=== PATIENT | male | born 1960 | race Caucasian/White ===

== ENCOUNTER 2019-11-10 14:39 | Inpatient (IN) | payer MEDICAID ==
[~2019-11-10] VITALS: Ht 188 cm; Wt 85.9 kg
[2019-11-10] MEDS: IBUPROFEN 800 MG TABLET PO SCH (01:00)
--- NOTE | 2019-11-10 15:07 | NUR ---
TIN DIPPER: PT TO ROOM FROM LOBBY, GAIT SLOW AND STEADY
[2019-11-10 15:25] LABS: MEAN CORPUSCULAR HEMOGLOBIN 17.2 pg (27.5-34.5); MEAN CORPUSCULAR HGB CONC 30.2 g/dL (33.2-36.2); MEAN CORPUSCULAR VOLUME 56.8 fL (81-97); MEAN PLATELET VOLUME 8.9 fL (7.4-10.4); PLATELET COUNT 683 x10^3/uL (130-400); RED BLOOD COUNT 5.54 x10^6/uL (4.38-5.82); RED CELL DISTRIBUTION WIDTH 25.3 % (9.4-14.8)
[2019-11-10 15:33] LABS: ALBUMIN 2.9 g/dL (3.4-5.0); ANION GAP 10 mmol/L (5-15); CALCIUM 8.9 mg/dL (8.5-10.1); CHLORIDE 97 mmol/L (98-107)
[2019-11-10 15:37] LABS: ALANINE AMINOTRANSFERASE 15 U/L (12-78); ALKALINE PHOSPHATASE 111 U/L (45-117); BILIRUBIN,TOTAL 0.6 mg/dL (0.2-1.0); CREATININE 1.59 mg/dL (0.7-1.3); TOTAL PROTEIN 7.2 g/dL (6.4-8.2)
[2019-11-10 15:44] LABS: MD YES
[2019-11-10] MEDS ORDERED: ONDANSETRON 2MG/ML, 2ML ONE ×2 (15:45→19:19)
[2019-11-10] MEDS ORDERED: MORPHINE SULFATE 4 MG/ML, 1ML ONE (15:45)
[2019-11-10 15:47] LABS: BAND#(MANUAL) 0.87 x10^3/uL; BANDS%(MANUAL) 7 % (0-7); EOS#(MANUAL) 0.12 x10^3/uL (0.0-0.4); EOS% (MANUAL) 1 % (1-7); LYMPH#(MANUAL) 0.37 x10^3/uL (1-3.4); LYMPHS% (MANUAL) 3 % (22-44); MONOS#(MANUAL) 0.62 x10^3/uL (0.3-2.7); MONOS% (MANUAL) 5 % (2-9); SEG#(MANUAL) 10.42 x10^3/uL (1.8-6.8); SEGS% (MANUAL) 84 % (42-75)
[2019-11-10 15:48] LABS: ANISOCYTOSIS 1+; HYPOCHROMIA 1+; MICROCYTOSIS 2+
[2019-11-10 15:49] LABS: ACANTHOCYTES 1+; OVALOCYTES 2+
[2019-11-10 15:50] LABS: <PLATELET ESTIMATE> INCREASED; LARGE PLATELETS 1+; SCHISTOCYTES 1+
[2019-11-10] MEDS ORDERED: MORPHINE SULFATE 4 MG/ML, 1ML IVPush PRN (16:00)
[2019-11-10] MEDS ORDERED: ONDANSETRON 2MG/ML, 2ML IVPush ONE (16:00)
--- NOTE | 2019-11-10 16:00 | NUR ---
PT AMB TO BATHROOM UPRIGHT STEADY GAIT. PT RPTS HE WAS UNABLE TO PROVIDE URINE SAMPLE AT THIS TIME. RTD TO ROOM W/O INCIDENT. POC DISCUSSED WITH PT AND QUESTIONS ANSWERED.
--- NOTE | 2019-11-10 16:15 | NUR ---
PIV EST AND PT MED NOTED. PT TO CT WITH TECH TRANSPORT
--- NOTE | 2019-11-10 16:25 | NUR ---
PT RTD FROM CT. VSS, CALL LIGHT W/I REACH
[2019-11-10] MEDS ORDERED: OMNIPAQUE 350 MG/ML, 100ML BOTTLE ONE (16:27)
[2019-11-10] MEDS ORDERED: LEVO25TA2 PO (16:28)
[2019-11-10] MEDS ORDERED: ALBU0.63 NEB (16:28)
[2019-11-10] MEDS ORDERED: ATOR40TA78 PO (16:28)
[2019-11-10 16:37] LABS: POLYCHROMASIA 1+
--- NOTE | 2019-11-10 17:04 | NUR ---
dr young spoke with dr eagle
[2019-11-10] MEDS ORDERED: SODIUM CHLORIDE 0.9% 1,000 ML IV ONE (17:06)
[2019-11-10] MEDS ORDERED: CEFTRIAXONE PMX 1GM/50ML 50 ML IVPB ONE (17:30)
[2019-11-10] MEDS ORDERED: FENTANYL PF 250 MCG/5ML ONE (17:37)
[2019-11-10] MEDS ORDERED: CEFTRIAXONE PMX 1GM/50ML 50 ML ONE (17:40)
[2019-11-10 17:48] LABS: INTERNATIONAL NORMALIZED RATIO 1.02 (0.93-1.1); PROTHROMBIN TIME 10.8 Seconds (9.6-11.5)
--- NOTE | 2019-11-10 17:51 | NUR ---
NGT INSERTED RIGHT NARE, PLACEMENT CONFIRMED BY AUSCULTATION AND PLACED TO LIS. NO DRAINAGE NOTED. PT TOLLERATED WELL AND TUBE [id number] WITH SECUREMENT DEVISE.
--- NOTE | 2019-11-10 17:58 | NUR ---
SBAR RPT TO BEADING SAWYER AND TO RAFI SCHROEDER ON SURGICAL.
[2019-11-10] MEDS ORDERED: DEXAMETHASONE 4 MG/ML, 1ML ONE (18:25)
[2019-11-10] MEDS ORDERED: CEFOTETAN PMX 2GM/50ML 50 ML ONE (18:31)
[2019-11-10] MEDS ORDERED: ROCURONIUM 10MG/ML,5ML ONE (18:48)
[2019-11-10] MEDS ORDERED: PROPOFOL 10 MG/ML, 20ML ONE (18:48)
[2019-11-10] MEDS ORDERED: SUCCINYLCHOLINE 20 MG/ML, 10ML ONE (18:48)
[2019-11-10] MEDS ORDERED: KETOROLAC 30 MG/1 ML ONE (18:48)
[2019-11-10] MEDS ORDERED: MEPERIDINE/PF 25MG/ML,1ML IVPush PRN (19:00)
[2019-11-10] MEDS ORDERED: MIDAZOLAM 1 MG/ML, 2ML IV PRN (19:00)
[2019-11-10] MEDS ORDERED: FENTANYL PF 100 MCG/2ML IV PRN (19:00)
[2019-11-10] MEDS ORDERED: hydrALAzine 20 MG/ML, 1ML IV PRN (19:00)
[2019-11-10] MEDS ORDERED: PROMETHAZINE 25 MG/ML, 1ML IV PRN (19:00)
[2019-11-10] MEDS ORDERED: LABETALOL 5MG/ML, 20ML IV PRN (19:00)
[2019-11-10] MEDS ORDERED: ONDANSETRON 2MG/ML, 2ML IV PRN (19:00)
[2019-11-10] MEDS ORDERED: NEOSTIGMINE 1 MG/ML, 10ML ONE (19:31)
[2019-11-10] MEDS ORDERED: GLYCOPYRROLATE 0.2MG/1ML, 5ML ONE (19:31)
[2019-11-10] MEDS ORDERED: DIPHENHYDRAMINE 50 MG/ML, 1ML IVPush PRN (20:00)
[2019-11-10] MEDS ORDERED: LORazepam 2 MG/ML, 1ML IVPush PRN (20:00)
[2019-11-10] MEDS ORDERED: HYDROmorphone 1 MG/ML, 1ML INJ IVPush PRN (20:00)
[2019-11-10] MEDS ORDERED: ONDANSETRON 2MG/ML, 2ML IVPush PRN (20:00)
[2019-11-10] MEDS ORDERED: CALCIUM CARBONATE 500 MG TAB.CHEW PO PRN (20:00)
[2019-11-10] MEDS ORDERED: SCOPOLAMINE PATCH, 1.5MG PATCH.TD72 TD PRN (20:00)
[2019-11-10] MEDS ORDERED: HYDROmorphone 1 MG/ML, 1ML INJ ONE ×2 (20:20→20:52)
[2019-11-10] MEDS: HYDROmorphone 2 MG/ML, 1ML IVPush PRN ×4 (20:22→21:10)
[2019-11-10] MEDS ORDERED: MEPERIDINE/PF 25MG/ML,1ML ONE (20:26)
[2019-11-10 21:50] VITALS: BP 128/84
[2019-11-10] MEDS: ACETAMINOPHEN 325 MG TABLET PO SCH (22:45)
[2019-11-11] VITALS: BP 112/77
[2019-11-11] MEDS ORDERED: TEMPLATE NON-FORMULARY MED. (Albuterol Sulfate (Albuterol Sulfate**) 1 VIAL) NEB PRN
[2019-11-11] MEDS ORDERED: ALBUTEROL SULFATE 2.5 MG/3 ML NPPB PRN (00:30)
[2019-11-11 00:51] LABS: MICROSCOPIC INDICATED
[2019-11-11] MEDS: IBUPROFEN 800 MG TABLET PO SCH ×4 (01:17→20:49)
[2019-11-11 01:20] LABS: CULTURE INDICATED? NO
[2019-11-11 03:21] LABS: ALBUMIN 2.1 g/dL (3.4-5.0); ANION GAP 4 mmol/L (5-15); CALCIUM 7.9 mg/dL (8.5-10.1); CHLORIDE 99 mmol/L (98-107); CREATININE 1.13 mg/dL (0.7-1.3)
[2019-11-11 03:37] LABS: MEAN CORPUSCULAR HEMOGLOBIN 17.5 pg (27.5-34.5); MEAN CORPUSCULAR HGB CONC 30.8 g/dL (33.2-36.2); MEAN CORPUSCULAR VOLUME 56.7 fL (81-97); MEAN PLATELET VOLUME 8.8 fL (7.4-10.4); PLATELET COUNT 484 x10^3/uL (130-400); RED BLOOD COUNT 4.52 x10^6/uL (4.38-5.82); RED CELL DISTRIBUTION WIDTH 24.2 % (9.4-14.8)
[2019-11-11 03:39] LABS: MD YES
[2019-11-11 03:40] LABS: BAND#(MANUAL) 3.13 x10^3/uL; BANDS%(MANUAL) 27 % (0-7); METAMYELOCYTES# (MANUAL) 0.93 x10^3/uL (0-0); METAMYELOCYTES% (MANUAL) 8 % (0-1); MONOS#(MANUAL) 0.23 x10^3/uL (0.3-2.7); MONOS% (MANUAL) 2 % (2-9); SEG#(MANUAL) 7.31 x10^3/uL (1.8-6.8); SEGS% (MANUAL) 63 % (42-75)
[2019-11-11 03:42] LABS: <PLATELET ESTIMATE> INCREASED; LARGE PLATELETS 1+
[2019-11-11 03:43] LABS: ACANTHOCYTES 1+; ANISOCYTOSIS 1+; HYPOCHROMIA 1+; MICROCYTOSIS 2+; OVALOCYTES 2+; POLYCHROMASIA 1+; SCHISTOCYTES 1+
[2019-11-11 04:07] VITALS: BP 113/76
[2019-11-11] MEDS: ACETAMINOPHEN 325 MG TABLET PO SCH ×4 (05:55→23:02)
[2019-11-11] MEDS: LEVOTHYROXINE 25 MCG TABLET PO SCH (05:55)
[2019-11-11] MEDS: CEFTRIAXONE 2 GM in SODIUM CHLORIDE 0.9% 50 ML IVPB SCH (05:57)
[2019-11-11 06:01] VITALS: BP 116/72
[2019-11-11 08:19] VITALS: BP 95/63
[2019-11-11] MEDS: ENOXAPARIN 30 MG/0.3 ML SQ SCH ×2 (08:41→20:49)
[2019-11-11 14:20] VITALS: BP 113/75
[2019-11-11] MEDS: OXYcodone IR 5MG TABLET PO PRN (15:19)
[2019-11-11 19:06] VITALS: BP 105/66
[2019-11-11] MEDS: ATORVASTATIN 40 MG TABLET PO SCH (20:49)
[2019-11-12] MEDS: OXYcodone IR 5MG TABLET PO PRN (00:47)
[2019-11-12 01:22] VITALS: BP 122/77
[2019-11-12 03:31] LABS: ANION GAP 6 mmol/L (5-15); CALCIUM 7.9 mg/dL (8.5-10.1); CHLORIDE 96 mmol/L (98-107); CREATININE 0.92 mg/dL (0.7-1.3)
[2019-11-12 03:51] LABS: MEAN CORPUSCULAR HEMOGLOBIN 17.5 pg (27.5-34.5); MEAN CORPUSCULAR VOLUME 56.4 fL (81-97); MEAN PLATELET VOLUME 8.7 fL (7.4-10.4); PLATELET COUNT 485 x10^3/uL (130-400); RED BLOOD COUNT 4.28 x10^6/uL (4.38-5.82); RED CELL DISTRIBUTION WIDTH 24.6 % (9.4-14.8)
[2019-11-12 04:17] LABS: MD YES
[2019-11-12 04:23] LABS: ANISOCYTOSIS 2+; BAND#(MANUAL) 0.88 x10^3/uL; BANDS%(MANUAL) 7 % (0-7); LYMPH#(MANUAL) 0.75 x10^3/uL (1-3.4); LYMPHS% (MANUAL) 6 % (22-44); METAMYELOCYTES# (MANUAL) 0.38 x10^3/uL (0-0); METAMYELOCYTES% (MANUAL) 3 % (0-1); MONOS#(MANUAL) 0.25 x10^3/uL (0.3-2.7); MONOS% (MANUAL) 2 % (2-9); SEG#(MANUAL) 10.25 x10^3/uL (1.8-6.8); SEGS% (MANUAL) 82 % (42-75)
[2019-11-12 04:24] LABS: ACANTHOCYTES 1+; HYPOCHROMIA 1+; MICROCYTOSIS 2+; OVALOCYTES 2+; POLYCHROMASIA 1+; SCHISTOCYTES 1+
[2019-11-12 04:25] LABS: ECHINOCYTES 1+
[2019-11-12 04:26] LABS: <PLATELET ESTIMATE> INCREASED; LARGE PLATELETS 1+; TOXIC GRAN 1+
[2019-11-12] MEDS: ACETAMINOPHEN 325 MG TABLET PO SCH ×4 (04:58→22:36)
[2019-11-12] MEDS: LEVOTHYROXINE 25 MCG TABLET PO SCH (04:58)
[2019-11-12] MEDS: CEFTRIAXONE 2 GM in SODIUM CHLORIDE 0.9% 50 ML IVPB SCH (05:43)
[2019-11-12 06:40] VITALS: BP 114/76
[2019-11-12] MEDS: ENOXAPARIN 30 MG/0.3 ML SQ SCH ×2 (08:54→21:26)
[2019-11-12] MEDS: IBUPROFEN 800 MG TABLET PO SCH ×3 (08:54→21:24)
[2019-11-12 12:14] VITALS: BP 113/73
[2019-11-12 18:55] VITALS: BP 102/65
[2019-11-12] MEDS: ATORVASTATIN 40 MG TABLET PO SCH (21:24)
[2019-11-13] VITALS (7 sets, daily range): BP systolic 97–124; BP diastolic 63–77
[2019-11-13] MEDS: ACETAMINOPHEN 325 MG TABLET PO SCH ×4 (04:34→22:25)
[2019-11-13 04:48] LABS: ALBUMIN 1.8 g/dL (3.4-5.0); ANION GAP 6 mmol/L (5-15); CALCIUM 7.7 mg/dL (8.5-10.1); CHLORIDE 105 mmol/L (98-107); CREATININE 0.96 mg/dL (0.7-1.3)
[2019-11-13 04:50] LABS: MEAN CORPUSCULAR HEMOGLOBIN 17.3 pg (27.5-34.5); MEAN CORPUSCULAR HGB CONC 30.5 g/dL (33.2-36.2); MEAN CORPUSCULAR VOLUME 56.8 fL (81-97); MEAN PLATELET VOLUME 9.1 fL (7.4-10.4); PLATELET COUNT 463 x10^3/uL (130-400); RED BLOOD COUNT 3.73 x10^6/uL (4.38-5.82); RED CELL DISTRIBUTION WIDTH 24.5 % (9.4-14.8)
[2019-11-13 05:03] LABS: MD YES
[2019-11-13 05:06] LABS: ACANTHOCYTES 1+; ANISOCYTOSIS 2+; BAND#(MANUAL) 0.98 x10^3/uL; BANDS%(MANUAL) 9 % (0-7); EOS#(MANUAL) 0.33 x10^3/uL (0.0-0.4); EOS% (MANUAL) 3 % (1-7); HYPOCHROMIA 1+; LYMPH#(MANUAL) 2.07 x10^3/uL (1-3.4); LYMPHS% (MANUAL) 19 % (22-44); METAMYELOCYTES# (MANUAL) 0.11 x10^3/uL (0-0); METAMYELOCYTES% (MANUAL) 1 % (0-1); MICROCYTOSIS 2+; MONOS#(MANUAL) 0.44 x10^3/uL (0.3-2.7); MONOS% (MANUAL) 4 % (2-9); OVALOCYTES 2+; POLYCHROMASIA 1+; SCHISTOCYTES 1+; SEG#(MANUAL) 6.98 x10^3/uL (1.8-6.8); SEGS% (MANUAL) 64 % (42-75)
[2019-11-13 05:07] LABS: <PLATELET ESTIMATE> INCREASED; ECHINOCYTES 2+; LARGE PLATELETS 1+; TOXIC GRAN 1+
[2019-11-13] MEDS: CEFTRIAXONE PMX 2GM/50ML 50 ML IVPB SCH (05:38)
[2019-11-13] MEDS: LEVOTHYROXINE 25 MCG TABLET PO SCH (05:39)
[2019-11-13] MEDS: IBUPROFEN 800 MG TABLET PO SCH ×3 (09:51→22:25)
[2019-11-13] MEDS: ATORVASTATIN 40 MG TABLET PO SCH (22:25)
[2019-11-14 03:09] VITALS: BP 122/68
[2019-11-14 04:36] LABS: ANION GAP 4 mmol/L (5-15); CALCIUM 7.7 mg/dL (8.5-10.1); CHLORIDE 107 mmol/L (98-107); CREATININE 0.85 mg/dL (0.7-1.3)
[2019-11-14 04:46] LABS: MEAN CORPUSCULAR HEMOGLOBIN 18.9 pg (27.5-34.5); MEAN CORPUSCULAR HGB CONC 31.3 g/dL (33.2-36.2); MEAN CORPUSCULAR VOLUME 60.4 fL (81-97); MEAN PLATELET VOLUME 8.8 fL (7.4-10.4); PLATELET COUNT 480 x10^3/uL (130-400); RED BLOOD COUNT 3.97 x10^6/uL (4.38-5.82); RED CELL DISTRIBUTION WIDTH 32.2 % (9.4-14.8)
[2019-11-14 05:31] LABS: MD YES
[2019-11-14 05:40] LABS: BAND#(MANUAL) 0.71 x10^3/uL; BANDS%(MANUAL) 7 % (0-7); BASOS% (MANUAL) 1 % (0-1); LYMPH#(MANUAL) 1.92 x10^3/uL (1-3.4); LYMPHS% (MANUAL) 19 % (22-44); METAMYELOCYTES% (MANUAL) 1 % (0-1); MONOS#(MANUAL) 0.61 x10^3/uL (0.3-2.7); MONOS% (MANUAL) 6 % (2-9); SEG#(MANUAL) 6.67 x10^3/uL (1.8-6.8); SEGS% (MANUAL) 66 % (42-75)
[2019-11-14 05:41] LABS: <PLATELET ESTIMATE> INCREASED; ACANTHOCYTES 1+; ANISOCYTOSIS 2+; ECHINOCYTES 1+; HYPOCHROMIA 1+; LARGE PLATELETS 1+; MICROCYTOSIS 2+; OVALOCYTES 2+; POLYCHROMASIA 1+; SCHISTOCYTES 1+; TOXIC GRAN 1+
[2019-11-14] MEDS: CEFTRIAXONE PMX 2GM/50ML 50 ML IVPB SCH (05:47)
[2019-11-14] MEDS: ACETAMINOPHEN 325 MG TABLET PO SCH ×4 (05:47→21:27)
[2019-11-14] MEDS: LEVOTHYROXINE 25 MCG TABLET PO SCH (05:47)
[2019-11-14 07:54] VITALS: BP 117/77
[2019-11-14] MEDS: IBUPROFEN 800 MG TABLET PO SCH ×3 (10:15→21:00)
[2019-11-14 12:18] VITALS: BP 143/84
[2019-11-14] MEDS ORDERED: IRON SUCROSE COMPLEX 100MG/5ML IVPB ONE (15:00)
[2019-11-14] MEDS ORDERED: GADOTERATE 10 MMOL/20 ML SYR ONE (15:45)
[2019-11-14] MEDS ORDERED: OMNIPAQUE 350 MG/ML, 100ML BOTTLE ONE (16:17)
[2019-11-14] MEDS: ATORVASTATIN 40 MG TABLET PO SCH (21:27)
[2019-11-14 21:30] VITALS: BP 138/88
[2019-11-15 01:12] VITALS: BP 97/66
[2019-11-15 04:26] LABS: MEAN CORPUSCULAR HEMOGLOBIN 18.5 pg (27.5-34.5); MEAN CORPUSCULAR HGB CONC 30.5 g/dL (33.2-36.2); MEAN CORPUSCULAR VOLUME 60.9 fL (81-97); MEAN PLATELET VOLUME 8.5 fL (7.4-10.4); PLATELET COUNT 574 x10^3/uL (130-400); RED BLOOD COUNT 4.44 x10^6/uL (4.38-5.82); RED CELL DISTRIBUTION WIDTH 33.4 % (9.4-14.8)
[2019-11-15 04:36] LABS: ANION GAP 6 mmol/L (5-15); CALCIUM 7.9 mg/dL (8.5-10.1); CHLORIDE 102 mmol/L (98-107); CREATININE 0.98 mg/dL (0.7-1.3)
[2019-11-15 04:38] LABS: MD YES
[2019-11-15 04:40] LABS: ANISOCYTOSIS 2+; BAND#(MANUAL) 1.22 x10^3/uL; BANDS%(MANUAL) 8 % (0-7); EOS#(MANUAL) 0.31 x10^3/uL (0.0-0.4); EOS% (MANUAL) 2 % (1-7); LYMPH#(MANUAL) 1.68 x10^3/uL (1-3.4); LYMPHS% (MANUAL) 11 % (22-44); MONOS#(MANUAL) 0.46 x10^3/uL (0.3-2.7); MONOS% (MANUAL) 3 % (2-9); SEG#(MANUAL) 11.63 x10^3/uL (1.8-6.8); SEGS% (MANUAL) 76 % (42-75)
[2019-11-15 04:41] LABS: <PLATELET ESTIMATE> INCREASED; ACANTHOCYTES 1+; ECHINOCYTES 1+; HYPOCHROMIA 1+; LARGE PLATELETS 1+; MICROCYTOSIS 1+; OVALOCYTES 2+; POLYCHROMASIA 1+; SCHISTOCYTES 1+; TOXIC GRAN 1+
[2019-11-15 05:57] VITALS: BP 100/67
[2019-11-15] MEDS: CEFTRIAXONE PMX 2GM/50ML 50 ML IVPB SCH (06:04)
[2019-11-15] MEDS: ACETAMINOPHEN 325 MG TABLET PO SCH (06:04)
[2019-11-15] MEDS: LEVOTHYROXINE 25 MCG TABLET PO SCH (06:04)
[2019-11-15] MEDS: IBUPROFEN 800 MG TABLET PO SCH (09:00)
[2019-11-15] MEDS ORDERED: IBUPROFEN 800 MG TABLET PO PRN (10:30)
[2019-11-15] MEDS ORDERED: ACETAMINOPHEN 325 MG TABLET PO PRN (10:30)
[2019-11-15 13:11] VITALS: BP 111/66
[2019-11-15] MEDS: ATORVASTATIN 40 MG TABLET PO SCH (20:56)
[2019-11-15 20:59] VITALS: BP 106/69
[2019-11-16 04:18] VITALS: BP 104/68
[2019-11-16 05:53] LABS: MD YES; MEAN CORPUSCULAR HGB CONC 31.1 g/dL (33.2-36.2); MEAN PLATELET VOLUME 8.3 fL (7.4-10.4); PLATELET COUNT 493 x10^3/uL (130-400); RED BLOOD COUNT 4.05 x10^6/uL (4.38-5.82); RED CELL DISTRIBUTION WIDTH 33.8 % (9.4-14.8)
[2019-11-16 05:55] LABS: BAND#(MANUAL) 0.32 x10^3/uL; BANDS%(MANUAL) 3 % (0-7); EOS#(MANUAL) 0.22 x10^3/uL (0.0-0.4); EOS% (MANUAL) 2 % (1-7); METAMYELOCYTES# (MANUAL) 0.11 x10^3/uL (0-0); METAMYELOCYTES% (MANUAL) 1 % (0-1)
[2019-11-16 05:56] LABS: LYMPH#(MANUAL) 1.73 x10^3/uL (1-3.4); LYMPHS% (MANUAL) 16 % (22-44); MONOS#(MANUAL) 0.54 x10^3/uL (0.3-2.7); MONOS% (MANUAL) 5 % (2-9); SEG#(MANUAL) 7.88 x10^3/uL (1.8-6.8); SEGS% (MANUAL) 73 % (42-75)
[2019-11-16 05:57] LABS: ACANTHOCYTES 1+; ANISOCYTOSIS 2+; ECHINOCYTES 1+; HYPOCHROMIA 1+; MICROCYTOSIS 2+; POLYCHROMASIA 1+; SCHISTOCYTES 1+
[2019-11-16 05:58] LABS: OVALOCYTES 2+
[2019-11-16 06:01] LABS: <PLATELET ESTIMATE> INCREASED; <PLT MORPHOLOGY> NORMAL PLT MORPH; TOXIC GRAN 1+
[2019-11-16] MEDS: LEVOTHYROXINE 25 MCG TABLET PO SCH (06:23)
[2019-11-16 08:33] VITALS: BP 105/70
[2019-11-16] MEDS ORDERED: FERROUS SULFATE 325 MG TABLET PO SCH (09:00)
[2019-11-16] MEDS ORDERED: FERR-51 PO (12:17)
[2019-11-16 13:07] VITALS: BP 102/68
== END 2019-11-16 16:00 | disposition home health service (06) | DRG 329 ==
LOC: ED 17:00 → EDIP 17:14 → 4NE 21:37 → 4NW 11-11 19:22 → DCLOUNGE 11-16 15:48
PROVIDERS: ADMIT Internal Medicine; ATTEND Family Medicine
PROC: 0D9E8ZZ Drainage of Large Intestine, Via Natural or Artificial Opening Endoscopic (ICD-10-PCS; 2019-11-10)
PROC: 0DBE0ZZ Excision of Large Intestine, Open Approach (ICD-10-PCS; 2019-11-10)
PROC: 0DBP0ZX Excision of Rectum, Open Approach, Diagnostic (ICD-10-PCS; principal; 2019-11-10 18:15)
PROC: 0D1E0Z4 Bypass Large Intestine to Cutaneous, Open Approach (ICD-10-PCS; 2019-11-10 18:15)
PROC: 0D9670Z Drainage of Stomach with Drainage Device, Via Natural or Artificial Opening (ICD-10-PCS; 2019-11-11)
PROC: 30233N1 Transfusion of Nonautologous Red Blood Cells into Peripheral Vein, Percutaneous Approach (ICD-10-PCS; 2019-11-13)
DX: C20 Malignant neoplasm of rectum (principal); N17.0 Acute kidney failure with tubular necrosis; E87.1 Hypo-osmolality and hyponatremia; K56.1 Intussusception; D50.0 Iron deficiency anemia secondary to blood loss (chronic); D72.829 Elevated white blood cell count, unspecified; E03.9 Hypothyroidism, unspecified; E78.5 Hyperlipidemia, unspecified; M54.9 Dorsalgia, unspecified; R00.0 Tachycardia, unspecified; I10 Essential (primary) hypertension; D47.3 Essential (hemorrhagic) thrombocythemia; J45.909 Unspecified asthma, uncomplicated; Z85.820 Personal history of malignant melanoma of skin; Z87.891 Personal history of nicotine dependence
CPT/HCPCS: 36415; 71045; 71260; 72197; 74021; 74177; 80048; 80053; 81001; 82040; 82728; 83540; 83550; 83605; 83690; 85014; 85018; 85025; 85610; 86850; 86900; 86923; 87040; 88305; 88307; 93005; 96374; 96375; C1729; G0378; J0696; J1100; J1170; J1650; J1756; J1885; J2405; J2704; J2710; J3010; Q9967; A9575; J0330; J2270; J3490; J7030; P9016

== ENCOUNTER → 2019-12-01 | Outpatient (CLI) | payer MEDICAID ==
[~2019-12-01] MED LIST: ALBU0.63 NEB; ATOR40TA78 PO; FERR-51 PO; LEVO25TA2 PO
== END | disposition home or self-care (01) ==
LOC: ROC 08:00
PROVIDERS: ATTEND Radiology Radiation Oncology
DX: C20 Malignant neoplasm of rectum (principal); E78.5 Hyperlipidemia, unspecified; I10 Essential (primary) hypertension; E03.9 Hypothyroidism, unspecified; F17.200 Nicotine dependence, unspecified, uncomplicated
CPT/HCPCS: 99214; G0463